=== PATIENT | male | born 1965 | race Native Hawaiian/Other Pacific Islander ===

== ENCOUNTER 2020-03-05 19:45 | Emergency (ER) | payer OTHER ==
[~2020-03-05] VITALS: Ht 175.3 cm; Wt 68.0 kg
[2020-03-05 19:55] VITALS: TEMP 98.2
[2020-03-05 21:26] VITALS: BP 189/99
== END 2020-03-05 21:26 | disposition home or self-care (01) ==
LOC: ED 19:45
DX: L03.011 Cellulitis of right finger (principal); S61.240A Puncture wound with foreign body of right index finger without damage to nail, initial encounter; W45.8XXA Other foreign body or object entering through skin, initial encounter; Y92.89 Other specified places as the place of occurrence of the external cause
CPT/HCPCS: 90471; 90715; 96372; 99283; J0690

== ENCOUNTER 2020-03-29 13:24 | Emergency (ER) | payer OTHER ==
[~2020-03-29] VITALS: Ht 175.3 cm; Wt 68.0 kg
[2020-03-29 13:24] VITALS: TEMP 98.1
[2020-03-29 14:13] LABS: PLATELET COUNT 229 K/uL (142-355); POTASSIUM 3.8 mmol/L (3.6-5.2)
[2020-03-29] MEDS ORDERED: HYDR10TA47A PO (15:01)
[2020-03-29] MEDS ORDERED: ALPR0.5T24 PO (15:01)
[2020-03-29] MEDS ORDERED: LISI20TA11 PO (15:02)
[2020-03-29] MEDS ORDERED: LISI10TA11 PO (15:02)
[2020-03-29] MEDS ORDERED: CYCL10TA35 PO (15:03)
[2020-03-29] MEDS ORDERED: CITA20TA2 PO (15:05)
[2020-03-29] MEDS ORDERED: 904272561 PO (15:05)
[2020-03-29] MEDS ORDERED: AMLODIPINE BESYLATE PO (15:05)
[2020-03-29 15:30] VITALS: BP 136/89
== END 2020-03-29 15:35 | disposition home or self-care (01) ==
LOC: ED 13:24
PROVIDERS: Family Medicine
DX: T78.3XXA Angioneurotic edema, initial encounter (principal); T78.49XA Other allergy, initial encounter; Z79.899 Other long term (current) drug therapy
CPT/HCPCS: 80053; 81000; 85027; 96372; 96374; 99284; J1200; J2930